=== PATIENT | male | born 1975 | race African-American/Black ===

== ENCOUNTER 2021-10-30 16:58 | Inpatient (IN) ==
--- NOTE | 2021-10-30 17:31 | ED.PDOC ---
General <NENO HAN MD - Last Filed: 10/30/21 18:43> ED Provider: Dr. NENO HAN MD Chief Complaint: Extremity Pain/Injury Stated Complaint: mild to mod bilateral leg cramps after drinking alcohol, no fever, ambulatory, o/w no injury, previous finger abscess much improved, hx dm Time Seen by Provider: 10/30/21 17:19 Mode of Arrival: Walk-In Information Source: Patient Sepsis Protocol: For patient's 13 years and over: Temp is 96.8 and below OR 101 and greater Pulse >90 BPM Resp >20/minute Acutely Altered Mental Status Are patient's symptoms suggestive of a new infection, such as: -Pneumonia -Skin, Soft Tissue -Endocarditis -UTI -Bone, Joint Infection -Implantable Device -Acute Abdominal Infection -Wound Infection -Meningitis -Blood Stream Catheter Infection -Unknown <BELINDA CREWS MD - Last Filed: 10/30/21 21:04> Nursing and Triage Documentation Reviewed and Agree: Yes Does patient meet sepsis criteria?: No System Inflammatory Response Syndrome: Not Applicable Review of Systems <NENO HAN MD - Last Filed: 10/30/21 18:43> Review Of Systems Constitutional: Denies Fever or Malaise Eyes: Denies Vision change Ears, Nose, Mouth, Throat: Denies Throat pain Respiratory: Denies Short of air Cardiac: Denies Chest pain GI: Denies Abdominal pain Musculoskeletal: Reports Muscle pain; Denies Back pain or Neck pain Skin: Denies Bruising Neurological: Denies Cognitive dysfunction All Other Systems: Other PFSH <NENO HAN MD - Last Filed: 10/30/21 18:43> Medical History (Updated 10/30/21 @ 20:54 by MATTHEW MELGAR RN) Diabetes High cholesterol Phalanx, distal fracture of finger Renal calculi Family History SISTER Heart attack BROTHER CHF (congestive heart failure) Diabetes BROTHER No problems noted. Mother Cancer Diabetes Hypertension FATHER CHF (congestive heart failure) Social History Smoking and tobacco status: Current every day smoker Tobacco type: cigarettes Alcohol intake: current Alcohol intake frequency: 3 or more drinks per day Alcohol type: wine Substance use type: marijuana Surgical History H/O hernia repair S/P right knee arthroscopy Physical Exam <NENO HAN MD - Last Filed: 10/30/21 18:43> Physical Exam Appearance: Reports Well-appearing Ill-appearing: None Pain Distress: Mild Eyes: Reports Conjunctiva clear ENT: Denies Rhinorrhea Neck: Supple Respiratory: Reports Airway patent Cardiovascular: Reports RRR GI/: Reports Soft and Nontender Musculoskeletal: Reports ROM intact, No edema and Calf tenderness Skin: Reports Warm and Dry Neurological: Reports Alert and Oriented Psychiatric: Reports Affect appropriate <BELINDA CREWS MD - Last Filed: 10/30/21 21:04> Critical Care Note Total Critical Care Time (mins): 40 Course <NENO HAN MD - Last Filed: 10/30/21 18:43> Course Hematology/Chemistry: 10/30/21 17:36 10/30/21 17:36 Orders, Labs, Meds: Lab Review 10/30/21 10/30/21 10/30/21 17:36 17:36 17:36 WBC 6.84 RBC 5.21 Hgb 14.6 Hct 44.3 MCV 85.0 MCH 28.0 MCHC 33.0 RDW Coeff of Mary 14.8 Plt Count 245 Immature Gran % (Auto) 0.3 Neut % (Auto) 64.6 Lymph % (Auto) 21.8 Atkinson % (Auto) 9.6 Eos % (Auto) 3.1 Baso % (Auto) 0.6 Neut # (Auto) 4.4 Lymph # (Auto) 1.5 Atkinson # (Auto) 0.7 Eos # (Auto) 0.2 Baso # (Auto) 0.0 Immature Gran # (Auto) 0.0 PT INR Sodium 139.6 Potassium 4.57 Chloride 108.8 H Carbon Dioxide 22.8 Anion Gap 12.57 BUN 16.8 Creatinine 1.74 H Estimated GFR (MDRD) 51.00 BUN/Creatinine Ratio 9.65 Glucose 119.7 H Lactic Acid Calcium 11.01 H Magnesium Total Bilirubin 0.46 AST 137.2 H ALT 55.4 H Alkaline Phosphatase 97.0 Total Creatine Kinase 26091.4 H CK-MB (CK-2) 4.170 H CK-MB (CK-2) % 0.0300 Troponin I Total Protein 8.03 Albumin 4.49 Globulin 3.54 Albumin/Globulin Ratio 1.26 D-Dimer 350.10 Urine Color Urine Clarity Urine pH Ur Specific [place] Urine Protein Urine Glucose (UA) Urine Ketones Urine Blood Urine Nitrite Urine Bilirubin Urine Urobilinogen Ur Leukocyte Esterase Urine Microscopic RBC Urine Microscopic WBC Ur Squamous Epith Cells Salicylate Level mg/dL Urine Opiates Screen Ur Oxycodone Screen Urine Methadone Screen Ur Propoxyphene Screen Acetaminophen Ur Barbiturates Screen U Tricyclic Antidepress Ur Phencyclidine Scrn Ur Amphetamine Screen U Methamphetamines Scrn U Benzodiazepines Scrn Urine Cocaine Screen U Cannabinoids Screen Plasma/Serum Alcohol < 10.0 SARS CoV-2 RNA Rapid OLIVA 10/30/21 10/30/21 10/30/21 17:36 17:36 18:40 WBC RBC Hgb Hct MCV MCH MCHC RDW Coeff of Mary Plt Count Immature Gran % (Auto) Neut % (Auto) Lymph % (Auto) Atkinson % (Auto) Eos % (Auto) Baso % (Auto) Neut # (Auto) Lymph # (Auto) Atkinson # (Auto) Eos # (Auto) Baso # (Auto) Immature Gran # (Auto) PT 9.9 INR 0.95 Sodium Potassium Chloride Carbon Dioxide Anion Gap BUN Creatinine Estimated GFR (MDRD) BUN/Creatinine Ratio Glucose Lactic Acid 1.10 Calcium Magnesium 2.14 Total Bilirubin AST ALT Alkaline Phosphatase Total Creatine Kinase CK-MB (CK-2) CK-MB (CK-2) % Troponin I < 0.012 Total Protein Albumin Globulin Albumin/Globulin Ratio D-Dimer Urine Color Urine Clarity Urine pH Ur Specific [place] Urine Protein Urine Glucose (UA) Urine Ketones Urine Blood Urine Nitrite Urine Bilirubin Urine Urobilinogen Ur Leukocyte Esterase Urine Microscopic RBC Urine Microscopic WBC Ur Squamous Epith Cells Salicylate Level mg/dL < 1.00 Urine Opiates Screen Ur Oxycodone Screen Urine Methadone Screen Ur Propoxyphene Screen Acetaminophen < 10.0 L Ur Barbiturates Screen U Tricyclic Antidepress Ur Phencyclidine Scrn Ur Amphetamine Screen U Methamphetamines Scrn U Benzodiazepines Scrn Urine Cocaine Screen U Cannabinoids Screen Plasma/Serum Alcohol SARS CoV-2 RNA Rapid OLIVA 10/30/21 10/30/21 10/30/21 19:07 19:55 19:55 WBC RBC Hgb Hct MCV MCH MCHC RDW Coeff of Mary Plt Count Immature Gran % (Auto) Neut % (Auto) Lymph % (Auto) Atkinson % (Auto) Eos % (Auto) Baso % (Auto) Neut # (Auto) Lymph # (Auto) Atkinson # (Auto) Eos # (Auto) Baso # (Auto) Immature Gran # (Auto) PT INR Sodium Potassium Chloride Carbon Dioxide Anion Gap BUN Creatinine Estimated GFR (MDRD) BUN/Creatinine Ratio Glucose Lactic Acid Calcium Magnesium Total Bilirubin AST ALT Alkaline Phosphatase Total Creatine Kinase CK-MB (CK-2) CK-MB (CK-2) % Troponin I Total Protein Albumin Globulin Albumin/Globulin Ratio D-Dimer Urine Color Yellow Urine Clarity Clear Urine pH 6.0 Ur Specific Brew[place] >=1.030 Urine Protein Negative Urine Glucose (UA) Negative Urine Ketones Negative Urine Blood 1+ H Urine Nitrite Negative Urine Bilirubin Negative Urine Urobilinogen 0.2 Ur Leukocyte Esterase Negative Urine Microscopic RBC 2-5 Urine Microscopic WBC 0-2 Ur Squamous Epith Cells 0-2 Salicylate Level mg/dL Urine Opiates Screen Negative Ur Oxycodone Screen Negative Urine Methadone Screen Negative Ur Propoxyphene Screen Negative Acetaminophen Ur Barbiturates Screen Negative U Tricyclic Antidepress Negative Ur Phencyclidine Scrn Negative Ur Amphetamine Screen Negative U Methamphetamines Scrn Negative U Benzodiazepines Scrn Positive H Urine Cocaine Screen Negative U Cannabinoids Screen Positive H Plasma/Serum Alcohol SARS CoV-2 RNA Rapid OLIVA Negative Orders Category Date Time Status EKG-(ED ONLY) Stat CARDIO 10/30/21 18:32 Completed ACETAMINOPHEN Stat LAB 10/30/21 17:36 Completed BLOOD ALCOHOL Stat LAB 10/30/21 17:36 Completed CBC W/ AUTO DIFF Stat LAB 10/30/21 17:36 Completed CMP [COMPREHENSIVE METABOLIC PANEL] Stat LAB 10/30/21 17:36 Completed COVID [SARS COV-2 RNA RAPID OLIVA] Stat LAB 10/30/21 19:07 Completed CPK [CREATINE KINASE] Stat LAB 10/30/21 17:36 Completed D-DIMER Stat LAB 10/30/21 17:36 Completed DRUG SCREEN, URINE, RAPID Stat LAB 10/30/21 19:55 Completed LACTIC ACID Stat LAB 10/30/21 18:40 Completed MAGNESIUM Stat LAB 10/30/21 17:36 Completed PT WITH INR Stat LAB 10/30/21 17:36 Completed SALICYLATE Stat LAB 10/30/21 17:36 Completed TROPONIN I Stat LAB 10/30/21 17:36 Completed URINALYSIS C & S IF INDICATED Stat LAB 10/30/21 19:55 Completed Sodium Chloride 0.9% [Sodium Chloride] 1,000 ml MEDS 10/30/21 18:24 Discontinued IV BOLUS Sodium Chloride 0.9% [Sodium Chloride] 1,000 ml MEDS 10/30/21 19:33 Discontinued IV BOLUS Medications Generic Name Dose Route Start Last Admin Trade Name Rosalba PRN Reason Stop Dose Admin Sodium Bicarbonate 44.6 meq/ 1,050 mls @ 200 mls/hr 10/30/21 20:18 Sodium Chloride IV 10/31/21 01:32 .Q5H15M ONE Sodium Chloride 1,000 mls @ 250 mls/hr 10/30/21 20:30 Sodium Chloride IV .Q4H MARIA DEL ROSARIO Morphine Sulfate 2 mg 10/30/21 20:25 Morphine Sulfate 2 Mg/Ml Vial IVP Q4H PRN Severe Pain Ondansetron HCl 4 mg 10/30/21 20:25 Ondansetron Hcl/Pf 4 Mg/2 Ml Sdv IVP Q6H PRN Nausea / Vomiting Discontinued Medications Generic Name Dose Route Start Last Admin Trade Name Rosalba PRN Reason Stop Dose Admin Sodium Chloride 1,000 mls @ 1,000 mls/hr 10/30/21 18:24 10/30/21 18:48 Sodium Chloride IV 10/30/21 19:23 1,000 mls/hr BOLUS STA Administration Sodium Chloride 1,000 mls @ 1,000 mls/hr 10/30/21 19:33 10/30/21 19:35 Sodium Chloride IV 10/30/21 20:32 1,000 mls/hr BOLUS STA Administration Vital Signs: Temp Pulse Resp BP Pulse Ox 10/30/21 17:01 98.0 F 78 16 134/92 H 98 <BELINDA CREWS MD - Last Filed: 10/30/21 21:04> Course Orders, Labs, Meds: Lab Review 10/30/21 10/30/21 10/30/21 17:36 17:36 17:36 WBC 6.84 RBC 5.21 Hgb 14.6 Hct 44.3 MCV 85.0 MCH 28.0 MCHC 33.0 RDW Coeff of Mary 14.8 Plt Count 245 Immature Gran % (Auto) 0.3 Neut % (Auto) 64.6 Lymph % (Auto) 21.8 Atkinson % (Auto) 9.6 Eos % (Auto) 3.1 Baso % (Auto) 0.6 Neut # (Auto) 4.4 Lymph # (Auto) 1.5 Atkinson # (Auto) 0.7 Eos # (Auto) 0.2 Baso # (Auto) 0.0 Immature Gran # (Auto) 0.0 PT INR Sodium 139.6 Potassium 4.57 Chloride 108.8 H Carbon Dioxide 22.8 Anion Gap 12.57 BUN 16.8 Creatinine 1.74 H Estimated GFR (MDRD) 51.00 BUN/Creatinine Ratio 9.65 Glucose 119.7 H Lactic Acid Calcium 11.01 H Magnesium Total Bilirubin 0.46 AST 137.2 H ALT 55.4 H Alkaline Phosphatase 97.0 Total Creatine Kinase 64199.4 H CK-MB (CK-2) 4.170 H CK-MB (CK-2) % 0.0300 Troponin I Total Protein 8.03 Albumin 4.49 Globulin 3.54 Albumin/Globulin Ratio 1.26 D-Dimer 350.10 Urine Color Urine Clarity Urine pH Ur Specific [place] Urine Protein Urine Glucose (UA) Urine Ketones Urine Blood Urine Nitrite Urine Bilirubin Urine Urobilinogen Ur Leukocyte Esterase Urine Microscopic RBC Urine Microscopic WBC Ur Squamous Epith Cells Salicylate Level mg/dL Urine Opiates Screen Ur Oxycodone Screen Urine Methadone Screen Ur Propoxyphene Screen Acetaminophen Ur Barbiturates Screen U Tricyclic Antidepress Ur Phencyclidine Scrn Ur Amphetamine Screen U Methamphetamines Scrn U Benzodiazepines Scrn Urine Cocaine Screen U Cannabinoids Screen Plasma/Serum Alcohol < 10.0 SARS CoV-2 RNA Rapid OLIVA 10/30/21 10/30/21 10/30/21 17:36 17:36 18:40 WBC RBC Hgb Hct MCV MCH MCHC RDW Coeff of Mary Plt Count Immature Gran % (Auto) Neut % (Auto) Lymph % (Auto) Atkinson % (Auto) Eos % (Auto) Baso % (Auto) Neut # (Auto) Lymph # (Auto) Atkinson # (Auto) Eos # (Auto) Baso # (Auto) Immature Gran # (Auto) PT 9.9 INR 0.95 Sodium Potassium Chloride Carbon Dioxide Anion Gap BUN Creatinine Estimated GFR (MDRD) BUN/Creatinine Ratio Glucose Lactic Acid 1.10 Calcium Magnesium 2.14 Total Bilirubin AST ALT Alkaline Phosphatase Total Creatine Kinase CK-MB (CK-2) CK-MB (CK-2) % Troponin I < 0.012 Total Protein Albumin Globulin Albumin/Globulin Ratio D-Dimer Urine Color Urine Clarity Urine pH Ur Specific [place] Urine Protein Urine Glucose (UA) Urine Ketones Urine Blood Urine Nitrite Urine Bilirubin Urine Urobilinogen Ur Leukocyte Esterase Urine Microscopic RBC Urine Microscopic WBC Ur Squamous Epith Cells Salicylate Level mg/dL < 1.00 Urine Opiates Screen Ur Oxycodone Screen Urine Methadone Screen Ur Propoxyphene Screen Acetaminophen < 10.0 L Ur Barbiturates Screen U Tricyclic Antidepress Ur Phencyclidine Scrn Ur Amphetamine Screen U Methamphetamines Scrn U Benzodiazepines Scrn Urine Cocaine Screen U Cannabinoids Screen Plasma/Serum Alcohol SARS CoV-2 RNA Rapid OLIVA 10/30/21 10/30/21 10/30/21 19:07 19:55 19:55 WBC RBC Hgb Hct MCV MCH MCHC RDW Coeff of Mary Plt Count Immature Gran % (Auto) Neut % (Auto) Lymph % (Auto) Atkinson % (Auto) Eos % (Auto) Baso % (Auto) Neut # (Auto) Lymph # (Auto) Atkinson # (Auto) Eos # (Auto) Baso # (Auto) Immature Gran # (Auto) PT INR Sodium Potassium Chloride Carbon Dioxide Anion Gap BUN Creatinine Estimated GFR (MDRD) BUN/Creatinine Ratio Glucose Lactic Acid Calcium Magnesium Total Bilirubin AST ALT Alkaline Phosphatase Total Creatine Kinase CK-MB (CK-2) CK-MB (CK-2) % Troponin I Total Protein Albumin Globulin Albumin/Globulin Ratio D-Dimer Urine Color Yellow Urine Clarity Clear Urine pH 6.0 Ur Specific [place] >=1.030 Urine Protein Negative Urine Glucose (UA) Negative Urine Ketones Negative Urine Blood 1+ H Urine Nitrite Negative Urine Bilirubin Negative Urine Urobilinogen 0.2 Ur Leukocyte Esterase Negative Urine Microscopic RBC 2-5 Urine Microscopic WBC 0-2 Ur Squamous Epith Cells 0-2 Salicylate Level mg/dL Urine Opiates Screen Negative Ur Oxycodone Screen Negative Urine Methadone Screen Negative Ur Propoxyphene Screen Negative Acetaminophen Ur Barbiturates Screen Negative U Tricyclic Antidepress Negative Ur Phencyclidine Scrn Negative Ur Amphetamine Screen Negative U Methamphetamines Scrn Negative U Benzodiazepines Scrn Positive H Urine Cocaine Screen Negative U Cannabinoids Screen Positive H Plasma/Serum Alcohol SARS CoV-2 RNA Rapid OLIVA Negative Orders Category Date Time Status EKG-(ED ONLY) Stat CARDIO 10/30/21 18:32 Completed ACETAMINOPHEN Stat LAB 10/30/21 17:36 Completed BLOOD ALCOHOL Stat LAB 10/30/21 17:36 Completed CBC W/ AUTO DIFF Stat LAB 10/30/21 17:36 Completed CMP [COMPREHENSIVE METABOLIC PANEL] Stat LAB 10/30/21 17:36 Completed COVID [SARS COV-2 RNA RAPID OLIVA] Stat LAB 10/30/21 19:07 Completed CPK [CREATINE KINASE] Stat LAB 10/30/21 17:36 Completed D-DIMER Stat LAB 10/30/21 17:36 Completed DRUG SCREEN, URINE, RAPID Stat LAB 10/30/21 19:55 Completed LACTIC ACID Stat LAB 10/30/21 18:40 Completed MAGNESIUM Stat LAB 10/30/21 17:36 Completed PT WITH INR Stat LAB 10/30/21 17:36 Completed SALICYLATE Stat LAB 10/30/21 17:36 Completed TROPONIN I Stat LAB 10/30/21 17:36 Completed URINALYSIS C & S IF INDICATED Stat LAB 10/30/21 19:55 Completed Sodium Chloride 0.9% [Sodium Chloride] 1,000 ml MEDS 10/30/21 18:24 Discontinued IV BOLUS Sodium Chloride 0.9% [Sodium Chloride] 1,000 ml MEDS 10/30/21 19:33 Discontinued IV BOLUS Medications Generic Name Dose Route Start Last Admin Trade Name Freq PRN Reason Stop Dose Admin Sodium Bicarbonate 44.6 meq/ 1,050 mls @ 200 mls/hr 10/30/21 20:18 Sodium Chloride IV 10/31/21 01:32 .Q5H15M ONE Sodium Chloride 1,000 mls @ 250 mls/hr 10/30/21 20:30 Sodium Chloride IV .Q4H MARIA DEL ROSARIO Morphine Sulfate 2 mg 10/30/21 20:25 Morphine Sulfate 2 Mg/Ml Vial IVP Q4H PRN Severe Pain Ondansetron HCl 4 mg 10/30/21 20:25 Ondansetron Hcl/Pf 4 Mg/2 Ml Sdv IVP Q6H PRN Nausea / Vomiting Discontinued Medications Generic Name Dose Route Start Last Admin Trade Name Freq PRN Reason Stop Dose Admin Sodium Chloride 1,000 mls @ 1,000 mls/hr 10/30/21 18:24 10/30/21 18:48 Sodium Chloride IV 10/30/21 19:23 1,000 mls/hr BOLUS STA Administration Sodium Chloride 1,000 mls @ 1,000 mls/hr 10/30/21 19:33 10/30/21 19:35 Sodium Chloride IV 10/30/21 20:32 1,000 mls/hr BOLUS STA Administration Vital Signs: Temp Pulse Resp BP Pulse Ox 10/30/21 17:01 98.0 F 78 16 134/92 H 98 Discharge Plan Discharge Patient Disposition: ADMITTED INPATIENT Discharge Problem: Rhabdomyolysis Qualifiers: Rhabdomyolysis type: non-traumatic Qualified Code(s): M62.82 - Rhabdomyolysis Acute renal failure (ARF) Qualifiers: Acute renal failure type: unspecified Qualified Code(s): N17.9 - Acute kidney failure, unspecified ED Provider: BELINDA CREWS Condition: Fair <NENO HAN MD - Last Filed: 10/30/21 18:43> Physician Progress Note: care to Dr Crews at 19:00 []
[2021-10-30 17:56] LABS: ALANINE AMINOTRANSFERASE 55.4 U/L (0-50); ALBUMIN 4.49 g/dL (3.5-5.0); ASPARTATE AMINO TRANSFERASE 137.2 U/L (17-59); BASOPHILS % (AUTO) 0.6 % (0.0-3.0); BILIRUBIN,TOTAL 0.46 mg/dL (0.2-1.3); BLOOD ALCOHOL < 10.0 mg/dL (0.0-50.0); BLOOD UREA NITROGEN 16.8 mg/dL (9-20); CALCIUM 11.01 mg/dL (8.4-10.2); CARBON DIOXIDE 22.8 mmol/L (22-30.0); CHLORIDE 108.8 mmol/L (98-107); CREATININE 1.74 mg/dL (0.60-1.10); EOSINOPHILS # (AUTO) 0.2 K/ul (0.0-0.7); EOSINOPHILS % (AUTO) 3.1 % (0.0-7.0); GLUCOSE 119.7 mg/dL (74-106); HEMATOCRIT 44.3 % (42.0-52.0); HEMOGLOBIN 14.6 g/dl (14.0-18.0); IMMATURE GRANULOCYTE % (AUTO) 0.3 % (0.0-5.0); LYMPHOCYTES # (AUTO) 1.5 K/uL (0.60-3.4); LYMPHOCYTES % (AUTO) 21.8 (10.0-50.0); MONOCYTES # (AUTO) 0.7 K/uL (0.4-2.0); MONOCYTES % (AUTO) 9.6 (0-10); NEUTROPHILS # (AUTO) 4.4 K/ul (2.0-6.9); NEUTROPHILS % (AUTO) 64.6 % (42.2-75.2); PLATELET COUNT 245 10^3/uL (140-440); POTASSIUM 4.57 mmol/L (3.5-5.1); RDW COEFFICIENT OF VARIATION 14.8 % (11.6-14.8); RED BLOOD COUNT 5.21 10^6/ul (4.70-6.10); SODIUM 139.6 mmol/L (134.5-145); TOTAL PROTEIN 8.03 g/dL (6.3-8.2); WHITE BLOOD COUNT 6.84 K/ul (4.2-10.2)
[2021-10-30 18:21] LABS: CREATINE KINASE 12037.4 U/L (55-170)
[2021-10-30] MEDS ORDERED: SODIUM CHLORIDE 1,000 ML IV STA ×2 (18:24→19:33)
[2021-10-30 18:44] LABS: PROTHROMBIN TIME 9.9 SEC (9.3-11.0)
[2021-10-30 18:50] LABS: MAGNESIUM 2.14 mg/dL (1.6-2.3)
[2021-10-30 19:01] LABS: ACETAMINOPHEN < 10.0 ug/ml (10-30); SALICYLATE < 1.00 mg/dL (0-20.0); TROPONIN I < 0.012 ng/ml (0.0000-0.120)
[2021-10-30 20:05] LABS: BILIRUBIN,URINE Negative (NEGATIVE); CLARITY,URINE Clear (CLEAR); COLOR,URINE Yellow (YELLOW); GLUCOSE, URINE (UA) Negative (NEGATIVE); KETONES,URINE Negative (NEGATIVE); LEUKOCYTE ESTERASE ,URINE Negative (NEGATIVE); NITRITE,URINE Negative (NEGATIVE); PROTEIN,URINE Negative (NEGATIVE); URINE, BLOOD 1+ (NEGATIVE); UROBILINOGEN,URINE 0.2 (0.2)
[2021-10-30 20:08] LABS: SQUAMOUS EPITHELIAL CELL,UR 0-2 (0-5); URINE WBC, MICROSCOPIC 0-2 (0-2)
[2021-10-30] MEDS ORDERED: SODIUM CHLORIDE IV ONE ×2 (20:18→21:51)
[2021-10-30] MEDS ORDERED: SODIUM BICARBONATE IV ONE ×2 (20:18→21:51)
[2021-10-30 20:24] LABS: AMPHETAMINE SCREEN,URINE NEGATIVE (NEGATIVE); BARBITURATE SCREEN,URINE NEGATIVE (NEGATIVE); BENZODIAZEPINES SCREEN,URINE POSITIVE (NEGATIVE); CANNABINOID SCREEN,URINE POSITIVE (NEGATIVE); COCAIN SCREEN,URINE NEGATIVE (NEGATIVE); METHADONE URINE SCREEN NEGATIVE (NEGATIVE); METHAMPHETAMINES SCREEN,URINE NEGATIVE (NEGATIVE); OPIATE SCREEN,URINE NEGATIVE (NEGATIVE); OXYCODONE URINE SCREEN NEGATIVE (NEGATIVE); PHENCYCLIDINE SCREEN,URINE NEGATIVE (NEGATIVE); PROPOXYPHENE URINE SCREEN NEGATIVE (NEGATIVE); TRICYCLIC ANTIDEPRESSANTS URIN NEGATIVE (NEGATIVE)
[2021-10-30] MEDS ORDERED: ZOFRAN 4 MG/2 ML IVP PRN (20:25)
[2021-10-30 20:47] VITALS: BMI 27.3
[2021-10-30] MEDS ORDERED: HUMULIN R SUBCUT PRN (21:04)
[2021-10-30] MEDS ORDERED: SODIUM BICARBONATE 8.4% ONE ×2 (21:13→21:34)
[2021-10-30] MEDS ORDERED: PEPCID IVP SCH (21:30)
[2021-10-30] MEDS ORDERED: SODIUM CHLORIDE IV SCH (21:30)
[2021-10-30] MEDS ORDERED: SODIUM BICARBONATE IV SCH (21:30)
[2021-10-30] MEDS: MORPHINE 2 MG/ML VIAL IVP PRN (22:44)
[2021-10-31 02:35] LABS: BLOOD UREA NITROGEN 15.7 mg/dL (9-20); CALCIUM 9.66 mg/dL (8.4-10.2); CARBON DIOXIDE 23.1 mmol/L (22-30.0); CHLORIDE 111.3 mmol/L (98-107); CREATININE 1.29 mg/dL (0.60-1.10); GLUCOSE 109.6 mg/dL (74-106); POTASSIUM 4.42 mmol/L (3.5-5.1); SODIUM 137.6 mmol/L (134.5-145)
[2021-10-31 02:59] LABS: CREATINE KINASE 12812.8 U/L (55-170)
[2021-10-31 03:15] LABS: CREATINE KINASE MB 4.56 ng/ml (0.0-2.38)
[2021-10-31] MEDS: SODIUM CHLORIDE 1,000 ML IV SCH ×7 (03:23→22:21)
[2021-10-31] MEDS ORDERED: DILAUDID 1 MG/ML SYRINGE IVP ONE (05:19)
[2021-10-31] MEDS ORDERED: SODIUM CHLORIDE 1,000 ML IV ONE (05:20)
[2021-10-31 05:26] LABS: BASOPHILS % (AUTO) 0.5 % (0.0-3.0); EOSINOPHILS # (AUTO) 0.3 K/ul (0.0-0.7); EOSINOPHILS % (AUTO) 5.4 % (0.0-7.0); HEMATOCRIT 37.5 % (42.0-52.0); HEMOGLOBIN 12.3 g/dl (14.0-18.0); IMMATURE GRANULOCYTE % (AUTO) 0.2 % (0.0-5.0); LYMPHOCYTES # (AUTO) 1.7 K/uL (0.60-3.4); LYMPHOCYTES % (AUTO) 29.7 (10.0-50.0); MEAN CORPUSCULAR HGB CONC 32.8 (31.8-35.4); MEAN CORPUSCULAR VOLUME 85.4 fl (80.0-94.0); MONOCYTES # (AUTO) 0.6 K/uL (0.4-2.0); NEUTROPHILS % (AUTO) 54.2 % (42.2-75.2); PLATELET COUNT 212 10^3/uL (140-440); RDW COEFFICIENT OF VARIATION 14.8 % (11.6-14.8); RED BLOOD COUNT 4.39 10^6/ul (4.70-6.10); WHITE BLOOD COUNT 5.59 K/ul (4.2-10.2)
[2021-10-31 05:27] LABS: BILIRUBIN,URINE Negative (NEGATIVE); CLARITY,URINE Clear (CLEAR); COLOR,URINE Yellow (YELLOW); GLUCOSE, URINE (UA) Negative (NEGATIVE); KETONES,URINE Negative (NEGATIVE); LEUKOCYTE ESTERASE ,URINE Negative (NEGATIVE); NITRITE,URINE Negative (NEGATIVE); PROTEIN,URINE Negative (NEGATIVE); URINE, BLOOD Trace-lysed (NEGATIVE); UROBILINOGEN,URINE 0.2 (0.2)
[2021-10-31 05:33] LABS: SQUAMOUS EPITHELIAL CELL,UR NOT PRESENT (0-5); URINE RBC, MICROSCOPIC 0-2 (0-2); URINE WBC, MICROSCOPIC 0-2 (0-2)
[2021-10-31 05:41] LABS: BLOOD UREA NITROGEN 14.2 mg/dL (9-20); CALCIUM 9.41 mg/dL (8.4-10.2); CARBON DIOXIDE 22.6 mmol/L (22-30.0); CHLORIDE 111.4 mmol/L (98-107); CREATININE 1.15 mg/dL (0.60-1.10); GLUCOSE 97.2 mg/dL (74-106); POTASSIUM 4.21 mmol/L (3.5-5.1); SODIUM 138.4 mmol/L (134.5-145)
[2021-10-31] MEDS ORDERED: VALIUM PO ONE (07:11)
--- NOTE | 2021-10-31 07:51 | PCM.PROG ---
Date Seen by Provider: 10/31/21 Time Seen by Provider: 07:10 Subjective: Pt admitted with CARLOS and rhabdomyolysis. Still having cramping and pain most notably in his legs. Denies any F/C/N/V/CP/AP/SOB. Admits to working in hot environments and drinking little fluids which likely resulted in his current condition. Objective: Vitals: T=97.9 F, P=72, R=16, KV=678/76, SPO2=97 HEENT: PERRL, HEENT Neck: supple Lungs: clear CVS: RRR Abdomen: soft, NT Extremities: Mild TTP with pain on movement Neurological: no focal findings Lab/Tests/Diagnostic Imaging: Cr. 1.2, [place] [address] (1) Rhabdomyolysis: Status: Acute Code(s): M62.82 - Rhabdomyolysis SNOMED Code(s): 191093791 (2) Acute renal failure (ARF): Status: Acute Code(s): N17.9 - Acute kidney failure, unspecified SNOMED Code(s): 87825004 Plan: 1. CARLOS: Cr already improving with fluids. Will continue to monitor 2. Rhabdomyolysis: CK went up slightly today. Will continue to hydrate with NS and monitor CK. 3. Leg pain: Will add valium to medications to try and help with muscle pain and spasms.
[2021-10-31] MEDS: PEPCID IVP SCH (08:26)
[2021-10-31 10:50] LABS: CREATINE KINASE 13171.6 U/L (55-170)
[2021-10-31 11:04] LABS: CREATINE KINASE MB 4.25 ng/ml (0.0-2.38)
[2021-10-31] MEDS: MORPHINE 2 MG/ML VIAL IVP PRN (16:58)
[2021-10-31] MEDS ORDERED: TORADOL IVP PRN (18:23)
[2021-10-31] MEDS ORDERED: LIDOCAINE OINTMENT 5% TP ONE (18:26)
[2021-10-31] MEDS ORDERED: LIDOCAINE 1% 20 ML MDV ID ONE (18:53)
[2021-10-31] MEDS ORDERED: LIDOCAINE HCL 1% SDV ONE (18:56)
--- NOTE | 2021-10-31 19:47 | PCM.PROG ---
Date Seen by Provider: 10/31/21 Time Seen by Provider: 19:20 Subjective: I was called to patients room to look at his left ring finger. He had an injury years ago that has led to some issues with his finger. About a week ago he was seen for a small abscess on the distal left ring finger. He had a small I&D and was given antibiots. Over the past 2 days, there has been some increased pain and swelling. Objective: Vitals: T=97.3 F, P=75, R=20, KG=922/98, SPO2=97 Extremities: There is a small abscess to his distal left ring finger (1) Rhabdomyolysis: Status: Acute Code(s): M62.82 - Rhabdomyolysis SNOMED Code(s): 167452971 (2) Acute renal failure (ARF): Status: Acute Code(s): N17.9 - Acute kidney failure, unspecified SNOMED Code(s): 77565089 Assessment: I&D of the left ring finger: Pt was consented verbally. A digital block of the left ring finger was performed with 5cc of 1% lidocaine. Using an 11 blade, a 6mm incision was made to the distal left ring finger with a mild amount of pus was returned. loculations were broken up and the wound was bandaged. Pt tolerated the procedure well and there were no complications. Plan: 1. Left ring finger abscess: I&D perfomed here in the hospital and place patient on doxycycline. He should soak the finger twice a day.
[2021-10-31] MEDS: VALIUM PO SCH (20:53)
[2021-10-31] MEDS ORDERED: LIPITOR PO SCH (21:00)
[2021-10-31] MEDS ORDERED: ULTRAM PO PRN (22:07)
[2021-10-31] MEDS: DOXYCYCLINE HYCLATE PO SCH (22:21)
[2021-11-01] MEDS: SODIUM CHLORIDE 1,000 ML IV SCH ×10 (00:19→21:43)
[2021-11-01 05:00] LABS: BASOPHILS % (AUTO) 0.4 % (0.0-3.0); EOSINOPHILS # (AUTO) 0.2 K/ul (0.0-0.7); EOSINOPHILS % (AUTO) 4.3 % (0.0-7.0); HEMATOCRIT 37.2 % (42.0-52.0); HEMOGLOBIN 12.2 g/dl (14.0-18.0); IMMATURE GRANULOCYTE % (AUTO) 0.6 % (0.0-5.0); LYMPHOCYTES # (AUTO) 1.4 K/uL (0.60-3.4); LYMPHOCYTES % (AUTO) 26.5 (10.0-50.0); MEAN CORPUSCULAR HGB CONC 32.8 (31.8-35.4); MEAN CORPUSCULAR VOLUME 85.5 fl (80.0-94.0); MONOCYTES # (AUTO) 0.6 K/uL (0.4-2.0); MONOCYTES % (AUTO) 11.2 (0-10); PLATELET COUNT 199 10^3/uL (140-440); RDW COEFFICIENT OF VARIATION 14.7 % (11.6-14.8); RED BLOOD COUNT 4.35 10^6/ul (4.70-6.10); WHITE BLOOD COUNT 5.17 K/ul (4.2-10.2)
[2021-11-01 05:11] LABS: BLOOD UREA NITROGEN 11.5 mg/dL (9-20); CALCIUM 9.72 mg/dL (8.4-10.2); CHLORIDE 110.2 mmol/L (98-107); CREATININE 0.99 mg/dL (0.60-1.10); GLUCOSE 99.9 mg/dL (74-106); POTASSIUM 4.29 mmol/L (3.5-5.1); SODIUM 136.7 mmol/L (134.5-145)
[2021-11-01] MEDS: VALIUM PO SCH (05:26)
[2021-11-01 06:10] LABS: BILIRUBIN,URINE Negative (NEGATIVE); CLARITY,URINE Clear (CLEAR); COLOR,URINE Yellow (YELLOW); GLUCOSE, URINE (UA) Negative (NEGATIVE); KETONES,URINE Negative (NEGATIVE); LEUKOCYTE ESTERASE ,URINE Negative (NEGATIVE); NITRITE,URINE Negative (NEGATIVE); PROTEIN,URINE Negative (NEGATIVE); SQUAMOUS EPITHELIAL CELL,UR NOT PRESENT (0-5); URINE, BLOOD Trace-intact (NEGATIVE); UROBILINOGEN,URINE 0.2 (0.2)
[2021-11-01] MEDS: DOXYCYCLINE HYCLATE PO SCH (08:57)
[2021-11-01] MEDS: PEPCID IVP SCH (08:58)
--- NOTE | 2021-11-01 11:40 | PCM.PROG ---
Date Seen by Provider: 11/01/21 Time Seen by Provider: 09:30 Subjective: No new complaints . Left ring Finger feels better . 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 Takes iburofen 2 caps up to 8 per day prn He has been of meds for months - clinician left and he hasnt went back . Hx of intermittant diarrhea and constipation Objective: Vitals: T=97.6 F, P=75, R=18, WP=281/96, SPO2=99 HEENT: [no icterus mouth nl ] Neck: [supple ] Lungs: [clear bilateral] CVS: [regualr ] Abdomen: [soft - occasional low abdomen cramps ] Extremities: [FROM ] Finger pad some swollen yet he reports it is better in both size and tenderness.The pad is swollen . The lateral I& D site when gently compressed and a small amount of blood presented so a culture was obtained on that drop. Bactroban and bandaide applied Neurological: [alert / orientd times 3 ] Skin: no rash Lab/Tests/Diagnostic Imaging: [ slight increase in CPK and decrease in BUN & creatinine - may be the peak of the muscle release ] (1) Rhabdomyolysis: Status: Acute Code(s): M62.82 - Rhabdomyolysis SNOMED Code(s): 597550769 (2) Acute renal failure (ARF): Status: Acute Code(s): N17.9 - Acute kidney failure, unspecified SNOMED Code(s): 95248386 (3) Felon of finger of left hand: Status: Acute Code(s): L03.012 - Cellulitis of left finger SNOMED Code(s): 634871464 Plan: 1. For felon - with IV in place will d/c doxy and add ancef 1 gm q 8 hrs , was not improving with SMX -TMP ,culture pending , CRP 2 For diabetes - HgA1c 3. For pain - d/c opiates add apap 4 For Rhabdo - continue IVF , repeat CPK 12 hrs from last draw, add uric 5. For diarrhea - add c diff ,probiotics 6 For felon - Finger splint - distal finger in extension , warm soaks for 10 min Q 8h, bactoban and bandaide
[2021-11-01] MEDS: BACTROBAN TP SCH ×2 (11:49→20:23)
[2021-11-01] MEDS ORDERED: TYLENOL PO PRN (12:19)
[2021-11-01] MEDS ORDERED: ANCEF ONE ×2 (13:23→20:06)
[2021-11-01] MEDS: FLORASTOR PO SCH ×2 (13:30→20:23)
[2021-11-01] MEDS: ANCEF 1 GM in SODIUM CHLORIDE 50 ML IV SCH ×2 (13:30→20:23)
[2021-11-01 13:44] LABS: CREATINE KINASE 16006.8 U/L (55-170)
[2021-11-01 13:59] LABS: CREATINE KINASE MB 3.3 ng/ml (0.0-2.38)
[2021-11-01 15:27] LABS: CREATINE KINASE 15903.9 U/L (55-170); URIC ACID 4.19 mg/dL (3.5-8.5)
[2021-11-01 15:46] LABS: CREATINE KINASE MB 2.72 ng/ml (0.0-2.38)
[2021-11-01] MEDS ORDERED: SODIUM CHLORIDE 1,000 ML IV ONE (17:51)
[2021-11-01 17:59] LABS: ALANINE AMINOTRANSFERASE 68.1 U/L (0-50); ALBUMIN 3.82 g/dL (3.5-5.0); ALKALINE PHOSPHATASE 83.7 U/L (38-126); ASPARTATE AMINO TRANSFERASE 229.2 U/L (17-59); BILIRUBIN,TOTAL 0.35 mg/dL (0.2-1.3); TOTAL PROTEIN 7.07 g/dL (6.3-8.2)
[2021-11-02 03:04] LABS: BASOPHILS % (AUTO) 0.4 % (0.0-3.0); EOSINOPHILS # (AUTO) 0.2 K/ul (0.0-0.7); EOSINOPHILS % (AUTO) 4.7 % (0.0-7.0); HEMATOCRIT 35.2 % (42.0-52.0); HEMOGLOBIN 11.6 g/dl (14.0-18.0); IMMATURE GRANULOCYTE % (AUTO) 0.4 % (0.0-5.0); LYMPHOCYTES # (AUTO) 1.7 K/uL (0.60-3.4); LYMPHOCYTES % (AUTO) 32.8 (10.0-50.0); MEAN CORPUSCULAR HEMOGLOBIN 28.2 pg (27.0-31.0); MEAN CORPUSCULAR VOLUME 85.4 fl (80.0-94.0); MONOCYTES # (AUTO) 0.4 K/uL (0.4-2.0); MONOCYTES % (AUTO) 8.3 (0-10); NEUTROPHILS # (AUTO) 2.7 K/ul (2.0-6.9); NEUTROPHILS % (AUTO) 53.4 % (42.2-75.2); PLATELET COUNT 202 10^3/uL (140-440); RDW COEFFICIENT OF VARIATION 14.4 % (11.6-14.8); RED BLOOD COUNT 4.12 10^6/ul (4.70-6.10); WHITE BLOOD COUNT 5.06 K/ul (4.2-10.2)
[2021-11-02 03:18] LABS: ALANINE AMINOTRANSFERASE 65.5 U/L (0-50); ALBUMIN 3.37 g/dL (3.5-5.0); ALKALINE PHOSPHATASE 73.4 U/L (38-126); ASPARTATE AMINO TRANSFERASE 206.5 U/L (17-59); BILIRUBIN,TOTAL 0.39 mg/dL (0.2-1.3); BLOOD UREA NITROGEN 8.8 mg/dL (9-20); CALCIUM 10.15 mg/dL (8.4-10.2); CARBON DIOXIDE 21.1 mmol/L (22-30.0); CHLORIDE 113.2 mmol/L (98-107); CREATININE 0.85 mg/dL (0.60-1.10); GLUCOSE 100.2 mg/dL (74-106); POTASSIUM 4.01 mmol/L (3.5-5.1); SODIUM 135.8 mmol/L (134.5-145); TOTAL PROTEIN 6.19 g/dL (6.3-8.2)
[2021-11-02 03:37] LABS: CREATINE KINASE 12144.3 U/L (55-170)
[2021-11-02 03:53] LABS: CREATINE KINASE MB 2.1 ng/ml (0.0-2.38)
[2021-11-02] MEDS: SODIUM CHLORIDE 1,000 ML IV SCH (05:04)
[2021-11-02] MEDS ORDERED: ANCEF ONE (05:18)
[2021-11-02] MEDS: ANCEF 1 GM in SODIUM CHLORIDE 50 ML IV SCH (05:30)
[2021-11-02] MEDS ORDERED: PEPCID PO SCH (06:30)
[2021-11-02] MEDS ORDERED: SODIUM BICARBONATE IV SCH (08:06)
[2021-11-02] MEDS ORDERED: SODIUM CHLORIDE IV SCH (08:06)
[2021-11-02] MEDS ORDERED: SODIUM CHLORIDE IVP SCH (08:30)
[2021-11-02] MEDS ORDERED: SODIUM BICARBONATE IVP SCH (08:30)
[2021-11-02] MEDS: BACTROBAN TP SCH (09:07)
[2021-11-02] MEDS: FLORASTOR PO SCH (09:07)
--- NOTE | 2021-11-02 10:57 | PCM.DC ---
Final Diagnosis: rhabdomyolysis, left ring finger felon Physical Exam Appearance: Well-appearing Ill-appearing: None Pain Distress: None Eyes: Conjunctiva clear ENT: Oropharynx normal Neck: Supple Respiratory: Airway patent Cardiovascular: RRR GI/: Other (nondistended) Musculoskeletal: ROM intact and Other (decreased sts ring finger) Skin: Warm and Dry Neurological: Alert and Oriented Psychiatric: Affect appropriate (1) Rhabdomyolysis: Status: Acute Code(s): M62.82 - Rhabdomyolysis SNOMED Code(s): 225224098 Qualifiers: Rhabdomyolysis type: non-traumatic Qualified Code(s): M62.82 - Rhabdomyolysis (2) Acute renal failure (ARF): Status: Acute Code(s): N17.9 - Acute kidney failure, unspecified SNOMED Code(s): 84192254 Qualifiers: Acute renal failure type: unspecified Qualified Code(s): N17.9 - Acute kidney failure, unspecified (3) Felon of finger of left hand: Status: Acute Code(s): L03.012 - Cellulitis of left finger SNOMED Code(s): 641819927 Reason for Hospitalization: rhabdomyolysis Prognosis/Condition at Discharge: fair Medications at Discharge: Ambulatory Orders Medication Instructions Recorded atorvastatin 20 mg tablet 20 mg PO BEDTIME 04/29/21 glyburide 1.25 mg tablet 1.25 mg PO BID 04/29/21 omeprazole 20 mg tablet,delayed 20 mg PO BID 04/29/21 release sulfamethoxazole 800 1 tab PO BID 10/30/21 mg-trimethoprim 160 mg tablet (Bactrim DS) Lab/Diagnostics: cpk [id number] today Education Provided to Patient and Family: oral fluids, avoid heat stress Follow-ups: pt transferred to [facility] accepted by Dr Solo for refractory rhabdomyolysis, despite iv hydration Discharge Disposition: Transfer Hospital Course: pt has improved, no longer has bilateral thigh cramps Plan: transfer to evaluate rheumatology origins of rhabdomyolysis
[2021-11-02] MEDS ORDERED: ANCEF 1 GM/50 ML D5W 1 GM/50 ML BAG IV SCH (13:00)
[2021-11-02 14:16] VITALS: BP 150/100; TEMP 97.8
== END 2021-11-02 17:00 | disposition short-term general hospital (02) | DRG 683 ==
LOC: ED 16:58 → MEDSURG A 20:03 → UNDODISIN 11-02 10:58
PROVIDERS: ADMIT Internal Medicine Geriatric Medicine; ATTEND Emergency Medicine Emergency Medical Services
DX: Z20.822 Contact with and (suspected) exposure to COVID-19; Z79.899 Other long term (current) drug therapy; M62.82 Rhabdomyolysis; Z51.81 Encounter for therapeutic drug level monitoring; F17.210 Nicotine dependence, cigarettes, uncomplicated; L03.012 Cellulitis of left finger; E11.9 Type 2 diabetes mellitus without complications; N17.9 Acute kidney failure, unspecified